=== PATIENT | male | born 1985 | race Caucasian/White ===

== ENCOUNTER 2022-12-10 15:38 | Emergency (ER) | payer MEDICAID, SELFPAY ==
--- NOTE | ~2022-12-10 | XR_ITS ---
EXAMINATION: XR CHEST CLINICAL INFORMATION: Chest pain COMPARISON: None TECHNIQUE: 2 views of the chest were obtained. FINDINGS: Mild perihilar bronchial wall thickening. No focal consolidation or mass. Normal pulmonary vascularity. No pleural effusion or pneumothorax. Normal heart size. No acute osseous abnormality. XR/XR chest 2V IMPRESSION: Perihilar bronchial wall thickening suggests bronchitis or interstitial pneumonitis. No pulmonary edema or focal consolidation seen.
[2022-12-10 15:43] VITALS: BP 119/84; PULSE 79; RESP 20; TEMP 36.6; O2SAT 99; BMI 24.3
--- NOTE | 2022-12-10 15:45 | ED_ITS ---
HPI - Chest Pain General Chief Complaint: Chest Pain <Cristal Stuart CNP - Last Filed: 12/10/22 15:50> Stated Complaint: Sharp chest pain <Cristal Stuart CNP - Last Filed: 12/10/22 15:50> Time Seen by Provider: 12/10/22 16:05 <Cristal Stuart CNP - Last Filed: 12/10/22 15:50> Related Data Allergies/Adverse Reactions: Allergies Allergy/AdvReac Type Severity Reaction Status Date / Time No Known Allergies Allergy Unverified 08/07/20 16:04 [No Known Allergies*] <Cristal Stuart CNP - Last Filed: 12/10/22 15:50> [facility] Social History Social History: Social History Advance Directives: No Advance Directives Information Provided: Yes <Cristal Stuart CNP - Last Filed: 12/10/22 15:50> Physical Exam Vital Signs: Vital Signs: Last Vital Signs Temp 97.9 F 12/10/22 15:43 Pulse 69 12/10/22 17:28 Resp 12/10/22 17:28 BP 125/69 12/10/22 17:28 Pulse Ox 98 12/10/22 17:28 O2 Del Method 12/10/22 17:28 BMI result Body Mass Index 24.3 <Cristal Stuart CNP - Last Filed: 12/10/22 15:50> Vital Signs: Last Vital Signs Temp 97.9 F 12/10/22 15:43 Pulse 69 12/10/22 17:28 Resp 12/10/22 17:28 BP 125/69 12/10/22 17:28 Pulse Ox 98 12/10/22 17:28 O2 Del Method 12/10/22 17:28 BMI result Body Mass Index 24.3 <Juana Macdonald MD - Last Filed: 12/10/22 18:00> Course Course Course Narrative: This is an RME: Additional HPI, ROS, PE not included below will be deferred to primary provider. Patient is a 37 year old male with no reported pmhx, complaining of chest pain, onset 2 weeks ago. Previously was intermittent, Since yesterday pain worsening and more constant, sharp and felt to left anterior chest, increase with deep inspiration, and while smoking marijuana. Denies URI sx, n/v, ABD pain, shortness of breath or difficulty breathing. Plan: labs, EKG, viral tests, cxr <Cristal Stuart CNP - Last Filed: 12/10/22 15:50> Medical Decision Making Medical Decision Making MDM Narrative: EKG interpreted by me shows normal sinus rhythm, heart rate 78, no ST segment depression or elevation, nonspecific T-wave inversion in lead 3, incomplete right bundle branch block Troponin negative, D-dimer negative Chest x-ray shows bronchitis. Patient denies any URI symptoms. Patient declined pain medication. On discharge, blood pressure 125/69, heart rate 69, respirations 20, oxygen saturation 98% on room air. <Juana Macdonald MD - Last Filed: 12/10/22 18:00> Lab Data Result Diagrams: 12/10/22 16:16 12/10/22 16:16 <Cristal Stuart CNP - Last Filed: 12/10/22 15:50> Labs: Lab Results 12/10/22 12/10/22 12/10/22 Range/Units 16:16 16:16 16:16 WBC 7.0 (4.8-10.8) X10*3/uL RBC 4.84 (4.60-5.80) X10*6/uL Hgb 13.7 L (14.0-18.0) g/dl Hct 40.1 L (42.0-52.0) % MCV 82.9 (80.0-98.0) fL MCH 28.3 (27.0-33.0) pg MCHC 34.2 (31.0-36.0) g/dl RDW 13.2 (11.0-16.0) % Plt Count 283 (160-400) X10*3/uL MPV 10.2 (9.4-12.4) fL Immature Gran % (Auto) 0.3 (0.0-0.4) % Neut % (Auto) 50.7 (45-73) % Lymph % (Auto) 39.3 (20-40) % Emanuel % (Auto) 8.0 (2-11) % Eos % (Auto) 1.3 (0-4) % Baso % (Auto) 0.4 (0-2) % Lymph # (Auto) 2.8 (1.2-4.9) X10*3/uL Emanuel # (Auto) 0.6 (0.1-1.2) X10*3/uL Eos # (Auto) 0.1 (0.0-0.4) X10*3/uL Baso # (Auto) 0.0 (0.0-0.2) X10*3/uL Abs Immat Gran (auto) 0.02 (0.00-0.03) X10*3/uL Absolute Neuts (auto) 3.6 (2.0-8.3) x10*3/uL Absolute Nucleated RBC 0.000 (0.0-0.012) X10*3/uL Nucleated RBC % (auto) 0.0 (0.0-0.2) /100WBC D-Dimer High Sensitivty NG/ML Sodium 138 (135-145) mmol/L Potassium 4.1 (3.3-5.1) mmol/L Chloride 106 (96-108) mmol/L Carbon Dioxide 22 (22-29) mmol/L Anion Gap 14 (12-20) BUN 12 (9-16) mg/dL Creatinine 0.90 (0.5-1.4) mg/dL Estim Creat Clear Calc 114.9 Estimated GFR > 60 Random Glucose 136 H (60-115) mg/dL Calcium 8.8 (8.4-10.2) mg/dL Total Bilirubin 0.3 (0.0-1.0) mg/dL AST 28 (5-37) U/L ALT 23 (0-40) U/L Alkaline Phosphatase 77 (39-117) U/L Troponin I High Sens < 3.5 (<3.5-35.0) ng/L Total Protein 7.2 (6.5-8.0) g/dL Albumin 4.0 (3.5-5.0) g/dL COVID-19 (ALEXANDER) (Negative) COVID-19 Clin Com Influenza Type A (JAYMIE) (Negative) Influenza Type B (JAYMIE) (Negative) Influenza A & B Note 12/10/22 12/10/22 12/10/22 Range/Units 16:16 16:16 16:53 WBC (4.8-10.8) X10*3/uL RBC (4.60-5.80) X10*6/uL Hgb (14.0-18.0) g/dl Hct (42.0-52.0) % MCV (80.0-98.0) fL MCH (27.0-33.0) pg MCHC (31.0-36.0) g/dl RDW (11.0-16.0) % Plt Count (160-400) X10*3/uL MPV (9.4-12.4) fL Immature Gran % (Auto) (0.0-0.4) % Neut % (Auto) (45-73) % Lymph % (Auto) (20-40) % Emanuel % (Auto) (2-11) % Eos % (Auto) (0-4) % Baso % (Auto) (0-2) % Lymph # (Auto) (1.2-4.9) X10*3/uL Emanuel # (Auto) (0.1-1.2) X10*3/uL Eos # (Auto) (0.0-0.4) X10*3/uL Baso # (Auto) (0.0-0.2) X10*3/uL Abs Immat Gran (auto) (0.00-0.03) X10*3/uL Absolute Neuts (auto) (2.0-8.3) x10*3/uL Absolute Nucleated RBC (0.0-0.012) X10*3/uL Nucleated RBC % (auto) (0.0-0.2) /100WBC D-Dimer High Sensitivty < 150 NG/ML Sodium (135-145) mmol/L Potassium (3.3-5.1) mmol/L Chloride (96-108) mmol/L Carbon Dioxide (22-29) mmol/L Anion Gap (12-20) BUN (9-16) mg/dL Creatinine (0.5-1.4) mg/dL Estim Creat Clear Calc Estimated GFR Random Glucose (60-115) mg/dL Calcium (8.4-10.2) mg/dL Total Bilirubin (0.0-1.0) mg/dL AST (5-37) U/L ALT (0-40) U/L Alkaline Phosphatase (39-117) U/L Troponin I High Sens (<3.5-35.0) ng/L Total Protein (6.5-8.0) g/dL Albumin (3.5-5.0) g/dL COVID-19 (ALEXANDER) Negative (Negative) COVID-19 Clin Com See Note Influenza Type A (JAYMIE) Negative (Negative) Influenza Type B (JAYMIE) Negative (Negative) Influenza A & B Note See Note <Cristal Stuart, DIRECTOR OF REHABILITATION AND WELLNESS - Last Filed: 12/10/22 15:50> Lab Results 12/10/22 12/10/22 12/10/22 Range/Units 16:16 16:16 16:16 WBC 7.0 (4.8-10.8) X10*3/uL RBC 4.84 (4.60-5.80) X10*6/uL Hgb 13.7 L (14.0-18.0) g/dl Hct 40.1 L (42.0-52.0) % MCV 82.9 (80.0-98.0) fL MCH 28.3 (27.0-33.0) pg MCHC 34.2 (31.0-36.0) g/dl RDW 13.2 (11.0-16.0) % Plt Count 283 (160-400) X10*3/uL MPV 10.2 (9.4-12.4) fL Immature Gran % (Auto) 0.3 (0.0-0.4) % Neut % (Auto) 50.7 (45-73) % Lymph % (Auto) 39.3 (20-40) % Emanuel % (Auto) 8.0 (2-11) % Eos % (Auto) 1.3 (0-4) % Baso % (Auto) 0.4 (0-2) % Lymph # (Auto) 2.8 (1.2-4.9) X10*3/uL Emanuel # (Auto) 0.6 (0.1-1.2) X10*3/uL Eos # (Auto) 0.1 (0.0-0.4) X10*3/uL Baso # (Auto) 0.0 (0.0-0.2) X10*3/uL Abs Immat Gran (auto) 0.02 (0.00-0.03) X10*3/uL Absolute Neuts (auto) 3.6 (2.0-8.3) x10*3/uL Absolute Nucleated RBC 0.000 (0.0-0.012) X10*3/uL Nucleated RBC % (auto) 0.0 (0.0-0.2) /100WBC D-Dimer High Sensitivty NG/ML Sodium 138 (135-145) mmol/L Potassium 4.1 (3.3-5.1) mmol/L Chloride 106 (96-108) mmol/L Carbon Dioxide 22 (22-29) mmol/L Anion Gap 14 (12-20) BUN 12 (9-16) mg/dL Creatinine 0.90 (0.5-1.4) mg/dL Estim Creat Clear Calc 114.9 Estimated GFR > 60 Random Glucose 136 H (60-115) mg/dL Calcium 8.8 (8.4-10.2) mg/dL Total Bilirubin 0.3 (0.0-1.0) mg/dL AST 28 (5-37) U/L ALT 23 (0-40) U/L Alkaline Phosphatase 77 (39-117) U/L Troponin I High Sens < 3.5 (<3.5-35.0) ng/L Total Protein 7.2 (6.5-8.0) g/dL Albumin 4.0 (3.5-5.0) g/dL COVID-19 (ALEXANDER) (Negative) COVID-19 Clin Com Influenza Type A (JAYMIE) (Negative) Influenza Type B (JAYMIE) (Negative) Influenza A & B Note 12/10/22 12/10/22 12/10/22 Range/Units 16:16 16:16 16:53 WBC (4.8-10.8) X10*3/uL RBC (4.60-5.80) X10*6/uL Hgb (14.0-18.0) g/dl Hct (42.0-52.0) % MCV (80.0-98.0) fL MCH (27.0-33.0) pg MCHC (31.0-36.0) g/dl RDW (11.0-16.0) % Plt Count (160-400) X10*3/uL MPV (9.4-12.4) fL Immature Gran % (Auto) (0.0-0.4) % Neut % (Auto) (45-73) % Lymph % (Auto) (20-40) % Emanuel % (Auto) (2-11) % Eos % (Auto) (0-4) % Baso % (Auto) (0-2) % Lymph # (Auto) (1.2-4.9) X10*3/uL Emanuel # (Auto) (0.1-1.2) X10*3/uL Eos # (Auto) (0.0-0.4) X10*3/uL Baso # (Auto) (0.0-0.2) X10*3/uL Abs Immat Gran (auto) (0.00-0.03) X10*3/uL Absolute Neuts (auto) (2.0-8.3) x10*3/uL Absolute Nucleated RBC (0.0-0.012) X10*3/uL Nucleated RBC % (auto) (0.0-0.2) /100WBC D-Dimer High Sensitivty < 150 NG/ML Sodium (135-145) mmol/L Potassium (3.3-5.1) mmol/L Chloride (96-108) mmol/L Carbon Dioxide (22-29) mmol/L Anion Gap (12-20) BUN (9-16) mg/dL Creatinine (0.5-1.4) mg/dL Estim Creat Clear Calc Estimated GFR Random Glucose (60-115) mg/dL Calcium (8.4-10.2) mg/dL Total Bilirubin (0.0-1.0) mg/dL AST (5-37) U/L ALT (0-40) U/L Alkaline Phosphatase (39-117) U/L Troponin I High Sens (<3.5-35.0) ng/L Total Protein (6.5-8.0) g/dL Albumin (3.5-5.0) g/dL COVID-19 (ALEXANDER) Negative (Negative) COVID-19 Clin Com See Note Influenza Type A (JAYMIE) Negative (Negative) Influenza Type B (JAYMIE) Negative (Negative) Influenza A & B Note See Note <Juana Macdonald MD - Last Filed: 12/10/22 18:00> Discharge Plan Discharge Clinical Impression: Pleurisy <Cristal Stuart CNP - Last Filed: 12/10/22 15:50> Patient Disposition: Home, Self-Care <Cristal Stuart CNP - Last Filed: 12/10/22 15:50> Instructions: Pleurisy (ED) <Cristal Stuart CNP - Last Filed: 12/10/22 15:50> Additional Instructions: Please follow-up with your primary care physician tomorrow. If you have any worsening or new symptoms, please return to the emergency room or call 911 <Cristal Stuart CNP - Last Filed: 12/10/22 15:50>
--- NOTE | 2022-12-10 15:48 | ECG_ITS ---
Test Reason : CP Blood Pressure : / mmHG Vent. Rate : 078 BPM Atrial Rate : 078 BPM P-R Int : 140 ms QRS Dur : 098 ms QT Int : 374 ms P-R-T Axes : 021 037 036 degrees QTc Int : 426 ms Normal sinus rhythm Incomplete right bundle branch block Borderline ECG When compared with ECG of 13-FEB-2010 11:30, No significant change was found Referred By: Cristal Stuart Electronically Signed By:VANESSA TORRES MD
[2022-12-10 16:32] LABS: MANUAL DIFF FLAG NO
[2022-12-10 16:38] LABS: Basophils Percent Auto 0.4 % (0-2); Eosinophils Absolute Auto 0.1 X10*3/uL (0.0-0.4); Eosinophils Percent Auto 1.3 % (0-4); Hematocrit 40.1 % (42.0-52.0); Hemoglobin 13.7 g/dl (14.0-18.0); Imm Gran Abs Auto 0.02 X10*3/uL (0.00-0.03); Imm Gran Pct Auto 0.3 % (0.0-0.4); Lymphocytes Absolute Auto 2.8 X10*3/uL (1.2-4.9); Lymphocytes Percent Auto 39.3 % (20-40); Mean Corpuscular HGB Conc 34.2 g/dl (31.0-36.0); Mean Corpuscular Hemoglobin 28.3 pg (27.0-33.0); Mean Corpuscular Volume 82.9 fL (80.0-98.0); Mean Platelet Volume 10.2 fL (9.4-12.4); Monocytes Absolute Auto 0.6 X10*3/uL (0.1-1.2); Neutrophils Absolute Auto 3.6 x10*3/uL (2.0-8.3); Neutrophils Percent Auto 50.7 % (45-73); Platelet Count 283 X10*3/uL (160-400); Red Blood Count 4.84 X10*6/uL (4.60-5.80); Red Cell Distribution Width 13.2 % (11.0-16.0)
[2022-12-10 16:50] LABS: COVID-19 Test Negative (Negative); IDNOW Serial# 9DB6401D; IDNOW Serial# BCCEAD1C; Influenza A Negative (Negative); Influenza B2 Negative (Negative)
[2022-12-10 16:56] LABS: Alanine Aminotransferase 23 U/L (0-40); Alkaline Phosphatase 77 U/L (39-117); Anion Gap 14 (12-20); Aspartate Amino Transferase 28 U/L (5-37); Bilirubin Total 0.3 mg/dL (0.0-1.0); Blood Urea Nitrogen 12 mg/dL (9-16); Calcium 8.8 mg/dL (8.4-10.2); Carbon Dioxide 22 mmol/L (22-29); Chloride 106 mmol/L (96-108); Creatinine Clr Calc Pharmacy 114.9; Estimated Glomerular Filt Rate > 60; Glucose Random 136 mg/dL (60-115); Potassium 4.1 mmol/L (3.3-5.1); Sodium 138 mmol/L (135-145); Total Protein 7.2 g/dL (6.5-8.0)
[2022-12-10 17:06] LABS: Troponin-I High Sensitivity < 3.5 ng/L (<3.5-35.0)
--- NOTE | 2022-12-10 17:10 | ED.CHESTPAIN ---
HPI - Chest Pain General Chief Complaint: Chest Pain Stated Complaint: Sharp chest pain Time Seen by Provider: 12/10/22 16:05 Source: patient Mode of arrival: ambulatory Limitations: no limitations History of Present Illness HPI narrative: Patient comes to the emergency room complaining of chest pain for 2 weeks. Patient states the pain is intermittent, worse with deep inhalation. Patient denies any recent URI symptoms, no fever chills, pain unrelated to exertion or posture. Patient denies any trauma or injuries. Related Data Allergies Allergy/AdvReac Type Severity Reaction Status Date / Time No Known Allergies Allergy Unverified 08/07/20 16:04 [No Known Allergies*] Review of Systems Review of Systems: Constitutional : No Weight loss, No Fever, No Chills, No Night Sweats, No Fatigue, No Malaise ENT/Mouth : No Hearing loss, No Ear Pain, No Nasal Congestion, No Sinus Pain, No Hoarseness, No sore throat, No Rhinorrhea, No Swallowing Difficulty Eyes: No Eye Pain, No Swelling, No Redness, No Foreign Body, No Discharge, No Vision Changes Cardiovascular : Complaining of sharp intermittent chest pain worse with inspirations, No SOB, No Dyspnea on Exertion, No Orthopnea, No Edema, No Palpitations Respiratory : No Cough, No Sputum, No Wheezing, No Smoke Exposure, No Dyspnea Gastrointestinal : No Nausea, No Vomiting, No Diarrhea, No Constipation, No abdominal Pain, No Hematochezia, No Melena Genitourinary : no irregular bleeding, No Dysuria, No Urinary Frequency, No Hematuria, No Urinary Incontinence, No Urgency, No Flank Pain, No Urinary Flow Changes, No Hesitancy Musculoskeletal : No joint pain, No Myalgias, No Joint Swelling Skin : No Skin Lesions, No rash Neuro : No Weakness, No Numbness, No Paresthesias, No Loss of Consciousness, No Dizziness, No Headache Psych : No Anxiety/Panic, No Depression, No SI/HI/AH/VH, No Social Issues, Heme/Lymph: No Bruising, No Bleeding,No Lymphadenopathy Endocrine : No Polyuria, No Polydipsia, No Temperature Intolerance [facility] Social History Social History Advance Directives: No Advance Directives Information Provided: Yes Physical Exam Vital Signs: Vital Signs: Last Vital Signs Temp 97.9 F 12/10/22 15:43 Pulse 79 12/10/22 15:43 Resp 20 12/10/22 15:43 BP 119/84 12/10/22 15:43 Pulse Ox 99 12/10/22 15:43 O2 Del Method 12/10/22 15:43 BMI result Body Mass Index 24.3 Const: Other: Appearance: Alert. Oriented X3. No acute distress. Well-appearing Eyes: Pupils equal, round and reactive to light. ENT: Pharynx normal. Neck: Normal inspection. Neck supple. No lymph nodes noted. No crepitus CVS: Normal heart rate and rhythm. Pulses normal. Normal S1 and S2 Respiratory: No respiratory distress. Breath sounds normal. No Wheezing. No rales , no chest pain with palpation, complaining of bilateral chest pain with deep inspiration on auscultation Abdomen: Soft and nontender. No rigidity. No distention. Skin: Skin warm and dry. Normal skin color. Normal skin turgor. Extremities: No lower extremity edema. No Lacerations. No Rash Neuro: Oriented X 3. No motor deficit. No sensory deficit. Moving all extremities. No slurred speech. CN 2 through 12 grossly intact Psych: calm, cooperative, normal affect Course Course Course Narrative: -patient's troponin within normal limits, chest x-ray shows bronchitis, EKG shows an incomplete right bundle-branch block. Otherwise no abnormalities. -D-dimer pending Medical Decision Making Lab Data 12/10/22 16:16 12/10/22 16:16 Labs: Lab Results 12/10/22 12/10/22 12/10/22 Range/Units 16:16 16:16 16:16 WBC 7.0 (4.8-10.8) X10*3/uL RBC 4.84 (4.60-5.80) X10*6/uL Hgb 13.7 L (14.0-18.0) g/dl Hct 40.1 L (42.0-52.0) % MCV 82.9 (80.0-98.0) fL MCH 28.3 (27.0-33.0) pg MCHC 34.2 (31.0-36.0) g/dl RDW 13.2 (11.0-16.0) % Plt Count 283 (160-400) X10*3/uL MPV 10.2 (9.4-12.4) fL Immature Gran % (Auto) 0.3 (0.0-0.4) % Neut % (Auto) 50.7 (45-73) % Lymph % (Auto) 39.3 (20-40) % Will % (Auto) 8.0 (2-11) % Eos % (Auto) 1.3 (0-4) % Baso % (Auto) 0.4 (0-2) % Lymph # (Auto) 2.8 (1.2-4.9) X10*3/uL Will # (Auto) 0.6 (0.1-1.2) X10*3/uL Eos # (Auto) 0.1 (0.0-0.4) X10*3/uL Baso # (Auto) 0.0 (0.0-0.2) X10*3/uL Abs Immat Gran (auto) 0.02 (0.00-0.03) X10*3/uL Absolute Neuts (auto) 3.6 (2.0-8.3) x10*3/uL Absolute Nucleated RBC 0.000 (0.0-0.012) X10*3/uL Nucleated RBC % (auto) 0.0 (0.0-0.2) /100WBC Sodium 138 (135-145) mmol/L Potassium 4.1 (3.3-5.1) mmol/L Chloride 106 (96-108) mmol/L Carbon Dioxide 22 (22-29) mmol/L Anion Gap 14 (12-20) BUN 12 (9-16) mg/dL Creatinine 0.90 (0.5-1.4) mg/dL Estim Creat Clear Calc 114.9 Estimated GFR > 60 Random Glucose 136 H (60-115) mg/dL Calcium 8.8 (8.4-10.2) mg/dL Total Bilirubin 0.3 (0.0-1.0) mg/dL AST 28 (5-37) U/L ALT 23 (0-40) U/L Alkaline Phosphatase 77 (39-117) U/L Troponin I High Sens < 3.5 (<3.5-35.0) ng/L Total Protein 7.2 (6.5-8.0) g/dL Albumin 4.0 (3.5-5.0) g/dL COVID-19 (ALEXANDER) (Negative) COVID-19 Clin Com Influenza Type A (JAYMIE) (Negative) Influenza Type B (JAYMIE) (Negative) Influenza A & B Note 12/10/22 12/10/22 Range/Units 16:16 16:16 WBC (4.8-10.8) X10*3/uL RBC (4.60-5.80) X10*6/uL Hgb (14.0-18.0) g/dl Hct (42.0-52.0) % MCV (80.0-98.0) fL MCH (27.0-33.0) pg MCHC (31.0-36.0) g/dl RDW (11.0-16.0) % Plt Count (160-400) X10*3/uL MPV (9.4-12.4) fL Immature Gran % (Auto) (0.0-0.4) % Neut % (Auto) (45-73) % Lymph % (Auto) (20-40) % Will % (Auto) (2-11) % Eos % (Auto) (0-4) % Baso % (Auto) (0-2) % Lymph # (Auto) (1.2-4.9) X10*3/uL Will # (Auto) (0.1-1.2) X10*3/uL Eos # (Auto) (0.0-0.4) X10*3/uL Baso # (Auto) (0.0-0.2) X10*3/uL Abs Immat Gran (auto) (0.00-0.03) X10*3/uL Absolute Neuts (auto) (2.0-8.3) x10*3/uL Absolute Nucleated RBC (0.0-0.012) X10*3/uL Nucleated RBC % (auto) (0.0-0.2) /100WBC Sodium (135-145) mmol/L Potassium (3.3-5.1) mmol/L Chloride (96-108) mmol/L Carbon Dioxide (22-29) mmol/L Anion Gap (12-20) BUN (9-16) mg/dL Creatinine (0.5-1.4) mg/dL Estim Creat Clear Calc Estimated GFR Random Glucose (60-115) mg/dL Calcium (8.4-10.2) mg/dL Total Bilirubin (0.0-1.0) mg/dL AST (5-37) U/L ALT (0-40) U/L Alkaline Phosphatase (39-117) U/L Troponin I High Sens (<3.5-35.0) ng/L Total Protein (6.5-8.0) g/dL Albumin (3.5-5.0) g/dL COVID-19 (ALEXANDER) Negative (Negative) COVID-19 Clin Com See Note Influenza Type A (JAYMIE) Negative (Negative) Influenza Type B (JAYMIE) Negative (Negative) Influenza A & B Note See Note
[2022-12-10 17:27] LABS: D Dimer High Sensitivity < 150 NG/ML
[2022-12-10 17:28] VITALS: BP 125/69; PULSE 69; RESP 20; O2SAT 98
== END 2022-12-10 18:03 | disposition home or self-care (01) ==
PROVIDERS: Nurse Practitioner Family; Emergency Provider Emergency Medicine
DX: R07.9 Chest pain, unspecified (principal); R09.1 Pleurisy; Z20.822 Contact with and (suspected) exposure to COVID-19
CPT/HCPCS: 36415; 71046; 80053; 84484; 85025; 85379; 87502; 87635; 93005; 99283; 99284

== ENCOUNTER 2023-05-12 09:21 | Outpatient (REF) | payer BC, SELFPAY ==
--- NOTE | ~2023-05-12 | XR_ITS ---
EXAMINATION: XR ELBOW, LEFT CLINICAL INFORMATION: Pain COMPARISON: 12/10/2013 TECHNIQUE: AP, lateral, and oblique views of the left elbow. FINDINGS: No acute fracture or dislocation. Again seen is a longitudinal screw within the proximal ulna transfixing a healed fracture of the olecranon with accompanying chronic deformity of the olecranon with associated heterotopic ossification adjacent soft tissues and prominent soft tissue swelling posterior to the head of the screw, likely olecranon bursitis. No evidence of hardware failure or complication. No elbow joint effusion. XR/XR elbow LT min 3V IMPRESSION: * No acute fracture or dislocation. * No evidence of hardware failure or complication. 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
== END 2023-05-12 09:22 | disposition home or self-care (01) ==
LOC: HO.HOSX 09:21
PROVIDERS: Visit Provider Physician Assistant
DX: M25.522 Pain in left elbow (principal); M25.521 Pain in right elbow; T84.84XA Pain due to internal orthopedic prosthetic devices, implants and grafts, initial encounter; Z96.9 Presence of functional implant, unspecified
CPT/HCPCS: 73080

== ENCOUNTER 2023-07-13 09:48 | Emergency (ER) | payer BC, MEDICAID, SELFPAY ==
--- NOTE | ~2023-07-13 | XR_ITS ---
EXAMINATION: XR FOOT, LEFT CLINICAL INFORMATION: Fifth distal metatarsal level plantar puncture wound. COMPARISON: None available. TECHNIQUE: AP, lateral, and oblique views of the left foot. FINDINGS: Puncture wound identified distal plantar aspect of the foot at the level of the metatarsals. No radiopaque foreign bodies. Soft tissues are prominent. Adjacent bony structures are intact. Alignment and articulations are maintained. XR/XR foot LT min 3V IMPRESSION: Puncture wound left fifth metatarsal plantar surface without bony involvement.
[2023-07-13 09:54] VITALS: BP 135/73; PULSE 75; RESP 17; TEMP 36.6; O2SAT 100; BMI 24.8
--- NOTE | 2023-07-13 11:10 | ED.LOWEXIN ---
HPI - Extremity Injury (Lower) General Chief Complaint: Extremity Injury, Lower Stated Complaint: L foot wound Time Seen by Provider: 07/13/23 10:25 Source: patient Mode of arrival: ambulatory Limitations: no limitations History of Present Illness HPI Narrative: 29-year-old male presents to the ER for evaluation of left foot pain, redness, swelling after he stepped on a metal rake last night. He states he was wearing sandals but the metal prong on the rake punctured through his sandal and into his foot, near his 5th toe. He states today is unable to bear weight and they swelling and redness is worse. He is unsure of his last tetanus shot. No fever or chills. No drainage from the wound aside from small amount of blood on the Band-Aid. MD complaint: foot injury Onset (ago): day(s) (1) Type of Injury: puncture wound Place: home Severity: moderate Relieving factors: immobilization Exacerbating factors: weight bearing, movement and palpation Context: stepped on nail Associated symptoms: able to partially bear weight Other symptoms: none Treatments prior to arrival: bandage Related Data Previous Rx's Medication Instructions Recorded ibuprofen 600 mg tablet 600 mg PO Q8H PRN pain #14 tabs 07/13/23 levofloxacin 750 mg tablet 750 mg PO DAILY #9 tabs 07/13/23 Allergies Allergy/AdvReac Type Severity Reaction Status Date / Time No Known Allergies Allergy Verified 07/13/23 09:54 [No Known Allergies*] Review of Systems Review of Systems: Yes all other systems are reviewed and are negative [facility] Social History Social History (Updated 05/12/23 @ 11:55 by Anderson Carter) Alcohol intake: former Patient Tobacco Use Status: Former Tobacco user Advance Directives: No Advance Directives Information Provided: No Current occupational status: employed Current occupation: [employer] / left hand dominant Physical Exam Vital Signs: Vital Signs: Last Vital Signs Temp 98 F 07/13/23 09:54 Pulse 75 07/13/23 09:54 Resp 17 07/13/23 09:54 BP 135/73 07/13/23 09:54 Pulse Ox 100 07/13/23 09:54 O2 Del Method Room Air 07/13/23 09:54 BMI result Body Mass Index 24.8 Appearance: Alert. Oriented X3. No acute distress. HEENT: normal inspection CVS: Normal heart rate and rhythm. Pulses normal. Respiratory: No respiratory distress. Skin: Skin warm and dry. Normal skin color. Normal skin turgor. No rashes. Extremities: Anterior aspect of the left foot with mild to moderate swelling and erythema of the distal portion. 2+ PT and DP pulses. On the plantar aspect of the left foot there is a approximately 1 cm circular puncture wound over the 5th MTP. No expression pus or drainage. Wound is slightly macerated. Neuro: Oriented X 3. No motor deficit. No sensory deficit. Medications Administered Discontinued Medications Generic Name Dose Route Start Last Admin Trade Name Freq PRN Reason Stop Dose Admin Diphtheria/Tetanus/Acell Pertussis 0.5 ml 07/13/23 11:05 07/13/23 11:26 Diphth,Pertus(Acell),Tet Adult 0.5 Ml Syringe IM 07/13/23 11:06 0.5 ml .ONCE ONE Administration Ibuprofen 600 mg 07/13/23 11:05 07/13/23 11:26 Ibuprofen 600 Mg Tablet PO 07/13/23 11:06 600 mg ONCE ONE Administration Levofloxacin 750 mg 07/13/23 11:05 07/13/23 11:27 Levofloxacin 750 Mg Tablet PO 07/13/23 11:06 750 mg ONCE ONE Administration Medical Decision Making Medical Decision Making [facility] Narrative: 37-year-old male presents to the ER for evaluation of left foot pain, swelling, redness after he stepped on a metal rake yesterday. Visible puncture wound approximately 1 cm big on the plantar aspect of the left foot. No drainage of pus but there is associated erythema, swelling and tenderness of the surrounding area and anterior foot. X-ray today is showing no bony involvement. The wound was cleansed with Betadine and saline. Topical antibiotics were applied along with a dry sterile dressing. Tdap was given along with Levofloxacin for Pseudomonas coverage. crutches provided for support. stable for d/c home. return precautions discussed. encouraged f/u with PCP to ensure proper healing Differential Diagnosis Differential Diagnoses: The differential diagnosis associated with the presentation includes Puncture wound, open fracture, Pseudomonas infection, cellulitis, abscess Independent Interpretation I performed an independent interpretation of an: Plain X-Ray Interpretation: xray without fractures, agree w/ radiology read Radiology Impression Discussion of test interpretation with radiology: I have reviewed the radiologist's reading. Radiologist Impression: EXAMINATION: XR FOOT, LEFT CLINICAL INFORMATION: Fifth distal metatarsal level plantar puncture wound. COMPARISON: None available.? TECHNIQUE: AP, lateral, and oblique views of the left foot. FINDINGS: Puncture wound identified distal plantar aspect of the foot at the level of the metatarsals. No radiopaque foreign bodies. Soft tissues are prominent. Adjacent bony structures are intact. Alignment and articulations are maintained. XR/XR foot LT min 3V IMPRESSION: Puncture wound left fifth metatarsal plantar surface without bony involvement. External Record Review External record reviewed: Prior outpatient labs Tests considered The following testing was considered but not selected: considered basic labs Prescription Management I considered prescription management with: Pain Medication and Antibiotic Critical Care Time Critical Care Time Critical Care Time: No Discharge Plan Discharge Clinical Impression: Puncture wound of foot Patient Disposition: Home, Self-Care Instructions: Puncture Wound in the Foot (ED) Additional Instructions: Your x-ray today did not show any bony involvement. Your given 1st dose of antibiotics today in the emergency department. Complete the course of prescribed antibiotics as directed, next due tomorrow. Complete the entire course and do not miss any doses. Monitor for worsening infection including worsening redness, pain, swelling or drainage of pus. You may ambulate on your foot as tolerated, use the crutches if pain is severe. Elevate and ice your foot as needed for pain and swelling. Take the prescribed anti-inflammatory pain medication as directed. Follow-up with your doctor. If you develop new or worsening symptoms call 911 or come back to the ER for further evaluation. Prescriptions: New levofloxacin 750 mg tablet 750 mg PO DAILY Qty: 9 0RF ibuprofen 600 mg tablet 600 mg PO Q8H PRN (Reason: pain) Qty: 14 0RF Stand Alone Forms: Work/School Release
[2023-07-13] MEDS: Diphth,Pertus(ACell),Tet Adult 0.5 ML SYRINGE IM (11:26)
[2023-07-13] MEDS: Ibuprofen 600 MG TABLET PO (11:26)
[2023-07-13] MEDS: levoFLOXacin 750 MG TABLET PO (11:27)
== END 2023-07-13 12:49 | disposition home or self-care (01) ==
PROVIDERS: Emergency Provider Emergency Medicine
DX: S91.332A Puncture wound without foreign body, left foot, initial encounter (principal); S90.812A Abrasion, left foot, initial encounter; M79.672 Pain in left foot; X58.XXXA Exposure to other specified factors, initial encounter; Y93.9 Activity, unspecified; Y92.9 Unspecified place or not applicable; Y99.9 Unspecified external cause status; Z87.891 Personal history of nicotine dependence; Z23 Encounter for immunization
CPT/HCPCS: 73630; 90471; 90715; 99283; 99284

== ENCOUNTER 2023-08-01 08:47 | Outpatient (AMB) | payer BC, SELFPAY ==
--- NOTE | 2023-08-01 08:51 | MHC.OFFVIS ---
Intake Intake Visit Reasons: Pre-Op LT Elbow PARUL 08/10/23NE Intake Note: Jacinto is a 37 year old left hand dominant male who presents today for a pre op appointment for his left elbow PARUL 08/10/23 NE. Allergies No Known Allergies [No Known Allergies*] Allergy (Verified 08/01/23 08:51) Medication List - Last Reconciled 08/01/23 by Yojana Enriquez, RN ibuprofen 600 mg PO Q8H PRN levofloxacin 750 mg PO DAILY HPI Pre-Op LT Elbow PARUL 08/10/23NE HPI Details 37-year-old male who presents in the office today for his preoperative history and physical exam prior to a left elbow removal of hardware to be performed on 08/10/[address] Eugene. He reports he was taking out the trash at night when he stepped on rack that was stuck under a basketball hoop and stuck his foot. This occurred 2 weeks ago. He denies being prescribe any antibiotics. He confirms being given a tetanus shot. He reports having severe back pain. Patient has no known allergy history. Patient is currently taking, as follows: -Ibuprofen 600 mg PO Q8H PRN -Levofloxacin 750 mg PO daily Patient has no known medical history. Patient has a surgical history, as follows: -left elbow ORIF; 2017 Dr. Johnson [facility] Social History (Updated 05/12/23 @ 11:55 by Anderson Carter) Alcohol intake: former Patient Tobacco Use Status: Former Tobacco user Current occupational status: employed Current occupation: [employer] / left hand dominant Review of Systems Const All systems reviewed & are unremarkable except as noted in HPI and below Physical Exam Const General: cooperative, healthy appearing, comfortable, no acute distress, well developed, alert and awake Orientation/consciousness: patient oriented x3 HEENT Head: Yes normal to inspection, Yes normocephalic and Yes atraumatic Eyes General: appearance normal, both eyes and all related structures Neck Neck: Yes normal visual inspection and Yes no lymphadenopathy Resp Effort & Inspection: normal respiratory effort and able to speak in complete sentences Cardio Rate: regular rate Peripheral pulses: Peripheral pulses 2+ throughout GI Inspection: Yes normal to inspection Palpation (GI): Soft to palpation Skin General skin exam: no rashes or lesions noted Neuro General: patient oriented x3 Extrem Other: Left elbow: Golf ball sized olecranon bursitis noted. No ecchymosis, erythema, or edema. No tenderness to palpation over the olecranon. Skin intact. No tenderness to the medial or lateral epicondyle. NVI. Psych Mental Status: mental status grossly normal Assessment & Plan Assessment & Plan (1) Retained orthopedic hardware: Comment: Left elbow 2017 Dr. Johnson Code(s): Z96.9 - Presence of functional implant, unspecified (2) Painful orthopaedic hardware: Comment: left elbow Code(s): T84.84XA - Pain due to internal orthopedic prosthetic devices, implants and grafts, initial encounter Plan Mr. Dent is a 37-year-old male who presents in the office today for his preoperative history and physical exam prior to a left elbow removal of hardware to be performed on 08/10/[address] Eugene. He reports he was taking out the trash at night when he stepped on rack that was stuck under a basketball hoop and stuck his foot. This occurred 2 weeks ago. He denies being prescribe any antibiotics. He confirms being given a tetanus shot. He reports having severe back pain. Patient has no known allergy history. Patient is currently taking, as follows: -Ibuprofen 600 mg PO Q8H PRN -Levofloxacin 750 mg PO daily Patient has no known medical history. Patient has a surgical history, as follows: -Left elbow ORIF; 2016 Dr. Johnson I will place a referral for Pain Management for further evaluation and treatment of his back. I discussed in detail the procedure and what to expect pre and post operatively. We discussed the risks, benefits and alternatives to the surgery as well as the rehabilitation course. The risks; which include, but are not limited to infection, bleeding, nerve injury, ongoing pain, swelling, and stiffness, perioperative risk of injury to bones and soft tissues, and blood clots. I have answered all questions and with their understanding they have consented to move forward with a left elbow removal of hardware to be performed on 08/10/[address] Hira Eugene. Follow up will be at the post operative appointment on 08/22/2023 at 9:15 am, or sooner if needed. Patient Instructions: Scribed for Norma Ramirez PA-C by gautam Doll scribe, on 08/01/2023 at 8:50 am, EST. Coding Level of Care Code Global (13204) Diagnoses Retained orthopedic hardware Z96.9 Painful orthopaedic hardware T84.84XA
== END 2023-08-01 09:30 | disposition home or self-care (01) ==
PROVIDERS: Visit Provider Physician Assistant
DX: Z96.9 Presence of functional implant, unspecified (principal); T84.84XA Pain due to internal orthopedic prosthetic devices, implants and grafts, initial encounter
CPT/HCPCS: 99024

== ENCOUNTER → 2023-08-01 08:47 | Outpatient (BNVA) | payer BC, SELFPAY | PROVIDERS: Visit Provider Physician Assistant ==

== ENCOUNTER 2023-08-10 09:57 | Day surgery (SDC) | payer BC, SELFPAY ==
[2023-08-05 14:48] VITALS: BMI 25.1
--- NOTE | 2023-08-09 08:24 | HO.ANESPROP2 ---
Documented by User: Aubree Agee NP 08/09/23 08:24 HPI - Anesthesia Eval Consult details Narrative: 37yo M for Left Removal Orthopedic Hardware of elbow PMFSH Active Problems Active Problems: All Active Problems (Updated 08/05/23 @ 14:48 by Safia Echavarria RN) Painful orthopaedic hardware (Acute) Retained orthopedic hardware (Acute) Past Medical History Medical History (Updated 08/05/23 @ 14:48 by Safia Echavarria RN) Puncture wound Pleurisy Surgical History Surgical History (Updated 08/05/23 @ 14:47 by Safia Echavarria RN) History of open reduction and internal fixation (ORIF) procedure Social History Social History (Updated 05/12/23 @ 11:55 by Anderson Carter) Are you a primary progressive care unit registered nurse to a significant other at home: No Do you presently have visiting nurse or other home services: No Alcohol intake: former Patient Tobacco Use Status: Former Tobacco user Quit Date: >5yrs ago Tobacco use type: Cigarette Current occupational status: employed Current occupation: [employer] / left hand dominant Meds Allergies Allergy/AdvReac Type Severity Reaction Status Date / Time No Known Allergies Allergy Verified 08/01/23 08:51 [No Known Allergies*] Exam Exam Date and Time: August 09, 2023 0824 Height,Weight and Vital Signs: Height 5 ft 10 in Weight 79.379 kg Assessment and Plan Assessment Anesthesia Assessment: Chart Reviewed Documented by User: Anderson Howard MD 08/10/23 18:45 HPI - Anesthesia Eval Consult details Narrative: 37yo M for Left Removal Orthopedic Hardware of elbow Marijuana smoker PMFSH Past Medical History Medical History (Updated 08/05/23 @ 14:48 by Safia Echavarria RN) Puncture wound Pleurisy Functional capacity: independent ambulation Family History Family history of problems with anesthesia: No Surgical History Surgical History (Updated 08/05/23 @ 14:47 by Safia Echavarria RN) History of open reduction and internal fixation (ORIF) procedure History of Problems with Anesthesia: No Social History Social History (Updated 05/12/23 @ 11:55 by Anderson Carter) Are you a primary progressive care unit registered nurse to a significant other at home: No Do you presently have visiting nurse or other home services: No Alcohol intake: former Patient Tobacco Use Status: Former Tobacco user Quit Date: >5yrs ago Tobacco use type: Cigarette Current occupational status: employed Current occupation: [employer] / left hand dominant Meds Allergies Allergy/AdvReac Type Severity Reaction Status Date / Time No Known Allergies Allergy Verified 08/01/23 08:51 [No Known Allergies*] Exam Airway Mallampati Class: III Neck ROM: Full Loose/Missing/Broken Teeth: Yes Assessment and Plan Assessment Anesthesia Assessment: Anesthesia Plan Discussed Final Anesthetic Review Family History of Problems with Anesthesia: No History of Problems with Anesthesia: No NPO: Yes ASA Class: II Final Preanesthetic Review: Meds/Allgs Chart Reviewed, Consent Obtained/Reviewed and Anes Risks/Benef Reviewed Patient Risk: Intermediate Procedure Risk: Intermediate Anesthetic Plan Anesthetic Plan: GA and Agree w/ Assess. and Plan Disposition: Standard PACU
[2023-08-10] VITALS (7 sets, daily range): BP systolic 102–120; BP diastolic 44–63; PULSE 63–78; RESP 13–17; TEMP 36.1–36.6; O2SAT 97–99
[2023-08-10] MEDS: Lactated Ringers 1,000 ML 100 ML IVCONT (10:23)
--- NOTE | 2023-08-10 11:31 | PM.OP ---
Brief Operative Note Date of Service: 08/10/23 Pre-op diagnosis: painful orthopaedic hardware left elbow Post-op diagnosis: same Procedure: PARUL left elbow Implants: none Surgeon: Hira Eugene MD Anesthesia: GETA and local Was an Refrigerator Assembler used for this Procedure?: Yes Refrigerator Assembler: Norma Ramirez Estimated blood loss (mL): 15 Tourniquet time (min): 20 Pathology: none sent Condition: stable Disposition: PACU
--- NOTE | 2023-08-15 14:21 | W.PM.OPN ---
Operative Note Operative Note Date of Service: 08/10/23 Narrative: Date of Service: 08/10/23 Pre-op diagnosis: painful orthopaedic hardware left elbow Post-op diagnosis: same Procedure: PARUL left elbow Implants: none Surgeon: Hira Eugene MD Anesthesia: GETA and local Was an Carbon Brusher Assembler used for this Procedure?: Yes Carbon Brusher Assembler: Norma Ramirez Estimated blood loss (mL): 15 Tourniquet time (min): 20 Pathology: none sent Condition: stable Disposition: PACU Procedure in detail: Patient was brought to the operating room and placed supine on the surgical table. He was prepped and draped in standard sterile fashion and a time out was called to identify proper site, proper procedure and IV antibiotics per weight were administered. I began by making an incision over the previous surgical incision over the olecranon. Full thickness flaps were taken down to the screw and a periosteal elevator was used to remove surrounding soft tissue. A lg fragment synthes screwdriver was placed and I was unable to remove the screw and the head quickly stripped. Therefore I used a large plier and rotated the screw head which bent the head but still I was unable to remove the screw. I removed the bent portion of the head with a insulation cutter and former and then debrided the bursa. The wound was irrigated [id number] and then closed with absorbable suture and ran. The patient was placed in sterile dressings, extubated and brought to the recovery room in stable condition.
== END 2023-08-10 13:38 | disposition home or self-care (01) ==
LOC: HO.SSS 09:58
PROVIDERS: Visit Provider Orthopaedic Surgery
PROC: (CPT 20680; principal; 2023-08-10 11:50)
DX: T84.84XA Pain due to internal orthopedic prosthetic devices, implants and grafts, initial encounter (principal); Y82.8 Other medical devices associated with adverse incidents; M70.22 Olecranon bursitis, left elbow; Y93.E9 Activity, other interior property and clothing maintenance; M25.522 Pain in left elbow; Z87.891 Personal history of nicotine dependence; Z79.899 Other long term (current) drug therapy
CPT/HCPCS: 20680; J0690; J1100; J2250; J2405; J3010

== ENCOUNTER → 2023-08-10 09:57 | Outpatient (BNV) | payer BC, SELFPAY | PROVIDERS: Visit Provider Orthopaedic Surgery | DX: T84.84XA Pain due to internal orthopedic prosthetic devices, implants and grafts, initial encounter (principal) | CPT/HCPCS: 20680 ==

== ENCOUNTER 2023-08-22 09:18 | Outpatient (AMB) | payer BC, SELFPAY ==
--- NOTE | 2023-08-22 09:26 | A.OFFVIS_ITS ---
Intake Intake Visit Reasons: PO LT Elbow PARUL 08/10/23NE Intake Note: Jacinto is a 37 year old left hand dominant male who presents today for a post operative appointment s/p Left Elbow PARUL 08/10/23. Allergies No Known Allergies [No Known Allergies*] Allergy (Verified 08/01/23 08:51) HPI PO LT Elbow PARUL 08/10/23NE HPI Details Jacinto is a 37 year old man who presents ~10 days S/P left elbow PARUL. He says he is doing well in regards to pain. He is concerned about missing work and wants to know when he can return. He also had questions about pain medication and says he cannot take NSAIDs. 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 [facility] Medical History (Updated 08/05/23 @ 14:48 by Safia Echavarria RN) Puncture wound Pleurisy Surgical History (Updated 08/22/23 @ 09:34 by Vasu Salazar) History of open reduction and internal fixation (ORIF) procedure Social History (Updated 05/12/23 @ 11:55 by Anderson Carter) Are you a primary home health aide caregiver to a significant other at home: No Do you presently have visiting nurse or other home services: No Alcohol intake: former Patient Tobacco Use Status: Former Tobacco user Quit Date: >5yrs ago Tobacco use type: Cigarette Current occupational status: employed Current occupation: [employer] / left hand dominant Review of Systems Const All systems reviewed & are unremarkable except as noted in HPI and below Physical Exam Const General: no acute distress, alert and awake Orientation/consciousness: patient oriented x3 HEENT Head: Yes normocephalic and Yes atraumatic Eyes EOM: EOMs intact bilaterally Resp Effort & Inspection: normal respiratory effort and able to speak in complete sentences Cardio Jugular venous distension: no JVD Skin General skin exam: turgor normal Rashes: no rashes Neuro General: patient oriented x3 Extrem Other: Left Elbow: Incision C/D/I Psych Appearance: grossly normal Affect: normal affect Attitude: cooperative Results Reviewed Results Reviewed: I personally reviewed relevant radiographs. Assessment & Plan Assessment & Plan (1) S/P hardware removal: Code(s): Z98.890 - Other specified postprocedural states Plan: This is a 37 year old man S/P left elbow PARUL, DOS: 08/10/23. He is doing well. [place] removed today, he will keep his incision C/D and avoid any lifting activities with his elbow at this time. He will follow up in 2 weeks. No work until follow up. (2) Painful orthopaedic hardware: Comment: left elbow Code(s): T84.84XA - Pain due to internal orthopedic prosthetic devices, implants and grafts, initial encounter Plan Scribed for Hira Eugene MD by Vasu Salazar, certified medical aide, on 08/22/23 at 9:35 AM, EST. Coding Level of Care Code Global (75016) Diagnoses S/P hardware removal Z98.890 Painful orthopaedic hardware T84.84XA
== END 2023-08-22 10:27 | disposition home or self-care (01) ==
PROVIDERS: Visit Provider Orthopaedic Surgery
DX: Z98.890 Other specified postprocedural states (principal); T84.84XA Pain due to internal orthopedic prosthetic devices, implants and grafts, initial encounter
CPT/HCPCS: 99024

== ENCOUNTER → 2023-08-22 09:18 | Outpatient (BNVA) | payer BC, SELFPAY | PROVIDERS: Visit Provider Orthopaedic Surgery ==

== ENCOUNTER 2023-09-15 12:40 | Outpatient (AMB) | payer BC, SELFPAY ==
--- NOTE | 2023-09-15 12:50 | A.OFFVIS_ITS ---
Intake Intake Visit Reasons: PO-LT Elbow PARUL 08/10/23NE Intake Note: Jacinto is a 37 year old left hand dominant male who presents today for a post operative appointment s/p Left Elbow PARUL 08/10/23. At his last visit he was given an out of work note. Allergies No Known Allergies [No Known Allergies*] Allergy (Verified 08/01/23 08:51) HPI PO-LT Elbow PARUL 08/10/23NE HPI Details Jacinto is a 37 year old man who presents ~1 month S/P left elbow PARUL. He says he is doing well in regards to pain and has been avoiding any lifting activities. He is concerned about missing work and would like to discuss return restrictions. 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 [facility] Medical History (Updated 08/05/23 @ 14:48 by Safia Echavarria RN) Puncture wound Pleurisy Surgical History (Updated 08/22/23 @ 09:34 by Vasu Salazar) History of open reduction and internal fixation (ORIF) procedure Social History (Updated 05/12/23 @ 11:55 by Anderson Carter) Are you a primary lawn care technician to a significant other at home: No Do you presently have visiting nurse or other home services: No Alcohol intake: former Patient Tobacco Use Status: Former Tobacco user Quit Date: >5yrs ago Tobacco use type: Cigarette Current occupational status: employed Current occupation: [employer] / left hand dominant Physical Exam Extrem Other: inc c/d/i moderate bursal fullness with no e/o infection baseline ROM (slight terminal extension restriction) No pain with palpation Assessment & Plan Assessment & Plan (1) S/P hardware removal: Code(s): Z98.890 - Other specified postprocedural states Plan: This is a 37 year old man S/P left elbow PARUL, DOS: 08/10/23. He is doing well and may return to work. (2) Painful orthopaedic hardware: Comment: left elbow Code(s): T84.84XA - Pain due to internal orthopedic prosthetic devices, implants and grafts, initial encounter Coding Level of Care Code Global (61548) Diagnoses S/P hardware removal Z98.890 Painful orthopaedic hardware T84.84XA
== END 2023-09-15 14:09 | disposition home or self-care (01) ==
PROVIDERS: Visit Provider Orthopaedic Surgery
DX: Z98.890 Other specified postprocedural states (principal); T84.84XA Pain due to internal orthopedic prosthetic devices, implants and grafts, initial encounter
CPT/HCPCS: 99024

== ENCOUNTER → 2023-09-15 12:40 | Outpatient (BNVA) | payer BC, SELFPAY | PROVIDERS: Visit Provider Orthopaedic Surgery ==

== ENCOUNTER 2024-02-21 12:23 | Emergency (ER) | payer MEDICAID, SELFPAY ==
--- NOTE | ~2024-02-21 | XR_ITS ---
EXAMINATION: XR LUMBOSACRAL SPINE CLINICAL INFORMATION: Low back pain, fall COMPARISON: None available. TECHNIQUE: Three views of the lumbosacral spine. FINDINGS: There is normal lumbar lordosis. The vertebral heights and alignment is normal. Mild loss of L5/S1 disc height with ventral spondylosis is noted. No visible acute fracture, dislocation or subluxation seen. The soft tissues are normal. The paravertebral soft tissues are normal. XR/XR lumbar spine 2-3V IMPRESSION: Mild degenerative disc changes L5/S1 disc level with ventral spondylosis. No visible acute fracture, dislocation or subluxation seen.
[2024-02-21 12:26] VITALS: BP 126/77; PULSE 79; RESP 16; TEMP 37; O2SAT 97; BMI 26.6
--- NOTE | 2024-02-21 12:27 | ED.BACK ---
HPI - Back Pain/Injury General Chief Complaint: Back Pain/Injury Stated Complaint: Low Back Pain No Injury Time Seen by Provider: 02/21/24 12:29 Source: patient Mode of arrival: ambulatory Limitations: no limitations History of Present Illness HPI Narrative: 38 yo male with history of intermittent low back pain presents to the ER for evaluation of worsening low back pain that started yesterday. He states it got even more severe this morning when he was pouring milk and he spasmed his back and legs gave out. MD elicited complaint: back pain Pertinent past history: prior back pain Onset (ago): day(s) Timing: intermittent Severity: moderate Similar Symptoms Previously: Yes Quality: sharp and stabbing Location: right lower back Radiation: buttocks Exacerbating factors: movement and walking Relieving factors: immobilization Context: turning/twisting Associated symptoms: denies other symptoms Work related injury: No Related Data Previous Rx's Medication Instructions Recorded oxycodone-acetaminophen 5 mg-325 1 tab PO Q4-6H PRN pain (scale 08/10/23 mg tablet (Percocet) score 4-6) 7 days #42 tabs cyclobenzaprine 10 mg tablet 10 mg PO TID PRN muscle spasm #10 02/21/24 tabs ibuprofen 600 mg tablet 600 mg PO Q8H PRN pain #10 tabs 02/21/24 Allergies Allergy/AdvReac Type Severity Reaction Status Date / Time No Known Allergies Allergy Verified 08/01/23 08:51 [No Known Allergies*] [facility] Past Medical History Medical History (Updated 02/21/24 @ 14:48 by RAFAEL Mcallister) Puncture wound Pleurisy Surgical History (Updated 08/22/23 @ 09:34 by Vasu Salazar) History of open reduction and internal fixation (ORIF) procedure Social History Social History (Updated 05/12/23 @ 11:55 by Anderson Carter) Are you a primary intensive care medicine specialist to a significant other at home: No Do you presently have visiting nurse or other home services: No Alcohol intake: former Patient Tobacco Use Status: Former Tobacco user Quit Date: >5yrs ago Tobacco use type: Cigarette Advance Directives: No Current occupational status: employed Current occupation: [employer] / left hand dominant Physical Exam Vital Signs: Vital Signs: Last Vital Signs Temp 98.4 F 02/21/24 14:22 Pulse 56 02/21/24 14:22 Resp 16 02/21/24 14:22 BP 115/40 L 02/21/24 14:22 Pulse Ox 97 02/21/24 14:22 O2 Del Method Room Air 02/21/24 14:22 BMI result Body Mass Index 26.6 Appearance: Alert. Oriented X3. No acute distress. HEENT: normal inspection CVS: Normal heart rate and rhythm. Pulses normal. Respiratory: No respiratory distress. Skin: Skin warm and dry. Normal skin color. Normal skin turgor. No rashes. Back: tenderness of the middle/lower lumbar area soft tissues, tenderness of the lower lumbar spine. limited flexion due to pain. Extremities: normal inspection x4, no joint swelling Neuro: Oriented X 3. No motor deficit. No sensory deficit. normal DTRs, steady gait Medications Administered Discontinued Medications Generic Name Dose Route Start Last Admin Trade Name Freq PRN Reason Stop Dose Admin Ketorolac Tromethamine 30 mg 02/21/24 12:29 02/21/24 12:40 Ketorolac Tromethamine 30 Mg/Ml Vial IM 02/21/24 12:30 30 mg ONCE ONE Administration Medical Decision Making Medical Decision Making MDM Narrative: 38-year-old male presents the ER for evaluation of nontraumatic low back pain that started yesterday. He has no red flag symptoms of low back pain. No urinary symptoms. X-ray showing some mild disc disease. Will treat with NSAIDs and muscle relaxers. Will refer to spine as he reports has been ongoing issue for several months and seems to be getting worse. Patient agrees with plan. Stable for discharge home. Differential Diagnosis Differential Diagnoses: The differential diagnosis associated with the presentation includes Inflammatory disorders, malignancy, trauma, osteoporosis, nerve root compression, radiculopathy, plexopathy, degenerative disc disease, disc herniation, spinal stenosis, sacroiliac joint dysfunction, facet joint injury, and less likely infection?like abscess or diskitis Independent Interpretation I performed an independent interpretation of an: Plain X-Ray Interpretation: No acute fractures agrees radiologist read Radiology Impression Discussion of test interpretation with radiology: I have reviewed the radiologist's reading. Radiologist Impression: XR/XR lumbar spine 2-3V IMPRESSION: Mild degenerative disc changes L5/S1 disc level with ventral spondylosis. No visible acute fracture, dislocation or subluxation seen. External Record Review External record reviewed: Prior outpatient radiology Prescription Management I considered prescription management with: Pain Medication Critical Care Time Critical Care Time Critical Care Time: No Discharge Plan Discharge Clinical Impression: Lumbar back pain Patient Disposition: Home, Self-Care Instructions: Low Back Strain (ED), Lower Back Exercises (ED) Additional Instructions: Your x-ray showed mild degenerative disc changes in your lumbar spine. No bending, lifting or twisting. Use ice several times per day for 20 minutes at a time for the next 48 hours and then change to heat. Take medications as prescribed to help with pain and discomfort. Follow up with your Primary Care Doctor this week. If your pain worsens, if you develop new numbness, tingling, weakness, loss of function or incontinence call 911 or come back to the ER right away for evaluation. Prescriptions: New ibuprofen 600 mg tablet 600 mg PO Q8H PRN (Reason: pain) Qty: 10 0RF cyclobenzaprine 10 mg tablet 10 mg PO TID PRN (Reason: muscle spasm) Qty: 10 0RF No Action oxycodone-acetaminophen [Percocet] 5-325 mg tablet 1 tab PO Q4-6H PRN (Reason: pain (scale score 4-6)) 7 Days Qty: 42 0RF Rx Instructions: Partial Fill upon patient request. Referrals: Mesfin Calixto MD, PhD [Physician] - ([place] [id number] XRay Report Signed Patient: Jacinto Dent MR#: [id number] : 1985 Acct:[id number] Age/Sex: 38 / M ADM Date: 02/21/24 Loc: HO.ED Attending Dr: Ordering Physician: Olivia Ambriz Date of Service: 02/21/24 Procedure(s): XR lumbar spine 2-3V Accession Number(s): [id number] cc: Physician,None ; Olivia Ambriz~ EXAMINATION: XR LUMBOSACRAL SPINE CLINICAL INFORMATION: Low back pain, fall COMPARISON: None available. TECHNIQUE: Three views of the lumbosacral spine. FINDINGS: There is normal lumbar lordosis. The vertebral heights and alignment is normal. Mild loss of L5/S1 disc height with ventral spondylosis is noted. No visible acute fracture, dislocation or subluxation seen. The soft tissues are normal. The paravertebral soft tissues are normal. XR/XR lumbar spine 2-3V IMPRESSION: Mild degenerative disc changes L5/S1 disc level with ventral spondylosis. No visible acute fracture, dislocation or subluxation seen.) Stand Alone Forms: Work/School Release Discharge Date/Time: 02/21/24 14:58
[2024-02-21] MEDS: Ketorolac Tromethamine 30 MG/ML VIAL IM (12:40)
[2024-02-21 14:22] VITALS: BP 115/40; PULSE 56; RESP 16; TEMP 36.9; O2SAT 97
== END 2024-02-21 14:58 | disposition home or self-care (01) ==
PROVIDERS: Emergency Provider Emergency Medicine
DX: M54.50 Low back pain, unspecified (principal)
CPT/HCPCS: 72100; 96372; 99283; 99284; J1885

== ENCOUNTER 2025-06-16 12:26 | Emergency (ER) | payer SELFPAY ==
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
[2025-06-16 12:36] VITALS: BP 124/68; PULSE 88; RESP 16; TEMP 35.9; O2SAT 100; BMI 25.2
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
[2025-06-16 15:13] VITALS: BP 124/68; PULSE 88; RESP 16; TEMP 35.9; O2SAT 100
== END 2025-06-16 15:19 | disposition home or self-care (01) ==
PROVIDERS: Emergency Provider Emergency Medicine
DX: S02.31XA Fracture of orbital floor, right side, initial encounter for closed fracture (principal); H53.8 Other visual disturbances; M54.2 Cervicalgia; R51.9 Headache, unspecified; R07.89 Other chest pain; R10.2 Pelvic and perineal pain; M25.531 Pain in right wrist; V43.52XA Car driver injured in collision with other type car in traffic accident, initial encounter; Y93.9 Activity, unspecified; Y92.410 Unspecified street and highway as the place of occurrence of the external cause; Y99.8 Other external cause status
CPT/HCPCS: 70450; 70486; 71250; 72125; 73110; 73130; 74176; 99282; 99284

== ENCOUNTER → 2025-06-16 12:42 | Outpatient (BNV) | payer SELFPAY | PROVIDERS: Emergency Provider Emergency Medicine; Visit Provider Radiology Diagnostic Radiology | DX: N20.0 Calculus of kidney (principal); R07.89 Other chest pain; M54.2 Cervicalgia; S02.831A Fracture of medial orbital wall, right side, initial encounter for closed fracture; M79.641 Pain in right hand; M25.531 Pain in right wrist | CPT/HCPCS: 70450; 70486; 71250; 72125; 73110; 73130; 74176 ==